=== PATIENT | female | born 1965 | race Caucasian/White ===

== ENCOUNTER 2016-11-22 10:22 | Emergency (ER) | payer MEDICAID ==
[~2016-11-22] VITALS: Ht 157.5 cm; Wt 86.0 kg
[2016-11-22 10:49] VITALS: Ht 157.5 cm; Wt 86.0 kg
[2016-11-22] MEDS ORDERED: ALBUTEROL 0.5% (NEB) 2.5 MG/0.5 ML AMP HHN STA (11:12)
[2016-11-22] MEDS ORDERED: DEXAMETHASONE 10 MG/ML 1 ML INJ IM ONE (11:30)
[2016-11-22] MEDS ORDERED: IPRATROPIUM (NEB) 0.5 MG/2.5 ML AMP HHN ONE (11:30)
--- NOTE | 2016-11-22 11:52 | RADRPT ---
PROCEDURE: XR Chest. CLINICAL INDICATION: Cough, chest pain. TECHNIQUE: AP view of the chest was obtained. COMPARISON: None available FINDINGS: The cardiomediastinal silhouette is within normal limits. The lungs are clear. No signs of pleural f luid or pneumothorax are seen. The osseous structures and soft tissues are unremarkable. IMPRESSION: 1. No evidence for active cardiopulmonary disease. RPTAT: DD .Jaylon Stone MD, MD Date Time Electronically viewed and signed by .Jaylon Stone MD, MD on 11/22/2016 11:51 .S/
[2016-11-22] MEDS ORDERED: MED4DP PO (12:40)
[2016-11-22 13:27] VITALS: BP 152/71; PULSE 97; RESP 18; TEMP 98
--- NOTE | 2016-11-22 17:18 | ERD ---
ER Documentation Chief Complaint Date/Time DATE: 11/22/16 TIME: 17:15 Chief Complaint COUGH , CHEST CONGESTION , BACK PAIN H/O ASTHMA HPI This is a 51-year-old female presents to the ER with a cough, chest congestion, wheezing for the last week. Patient also complained of a sore throat. Patient has a past medical history of asthma and uses albuterol inhaler. Patient states that she has been feeling short of breath secondary to wheezing. She denies any chest pain. She does admit to upper back pain, is worse with coughing. ROS 12 point review of systems was done, all negative except per HPI. Medications Home Meds Active Scripts Methylprednisolone* (Medrol* DOSE PACK) 4 Mg/Dose-Pack Tab.ds.pk, 4 MG PO . DIRECTED for 6 Days, PACKET Prov:BRIAN NÚÑEZ 11/22/16 PMhx/Soc Medical and Surgical Hx: pt denies Surgical Hx Hx Respiratory Disorders: Yes (asthma) Hx Psychiatric Problems: No Hx Miscellaneous Medical Probl: No Hx Alcohol Use: No Hx Substance Use: No Hx Tobacco Use: No Smoking Status: Never smoker Physical Exam Vitals Vital Signs Date Time Temp Pulse Resp B/P Pulse Ox O2 Delivery O2 Flow Rate FiO2 11/22/16 13:27 98.0 97 18 152/71 97 Room Air 11/22/16 11:34 77 18 96 21 11/22/16 10:49 99.2 83 18 139/72 96 Physical Exam GENERAL: The patient is well-developed, well-nourished, in no acute distress. NECK: Cervical spine is non tender with no step off. Supple, no nuchal rigidity HEENT: Atraumatic. Pupils equal, round and reactive to light. Extraocular muscles are grossly intact. Conjunctivae pink, no discharge. Bilateral tympanic membranes are clear with no evidence of erythema, effusion or dulling of the light reflex. Tonsilar erythema with no exudates or uvular deviation. Clear rhinorrhea. RESPIRATORY: Clear to auscultation bilaterally. There are no rales, wheezes or rhonchi. HEART: Regular rate and rhythm. No murmurs, clicks, rubs or gallops. EXTREMITIES: No clubbing or cyanosis. Full range of motion. Grossly neurovascularly intact. NEUROLOGIC: Alert and oriented. SKIN: There is no rash. The skin is warm and dry. Results 24 hrs Current Medications Medications (Trade) Dose Ordered Sig/Anish Route PRN Reason Start Time Stop Time Status Last Admin Dose Admin Albuterol (Proventil 0.5% (Neb)) 10 mg ONCE STAT HHN 11/22/16 11:12 11/22/16 11:16 DC 11/22/16 11:31 Ipratropium [place] (Atrovent 0.02% (Neb)) 0.5 mg ONCE ONCE HHN 11/22/16 11:30 11/22/16 11:31 DC 11/22/16 11:31 Dexamethasone (Decadron) 10 mg ONCE ONCE IM 11/22/16 11:30 11/22/16 11:31 DC 11/22/16 11:24 Procedures/MDM EKG 75bpm no ST elevation no t wave inversion. signed by Dr. Haji Differential diagnosis includes but is not limited to; Viral URI, allergic rhinitis, bronchitis, pertussis,pneumonia. This is likely bronchitis. Clinical suspicion for pneumonia is low as patient appears well, is not hypoxic or in any respiratory distress. Additionally, patients physical examination is benign. Plan was discussed with patient they understand and agree. Patient needs to follow up with PCP in 1-2 days or return to ER sooner if symptoms worsen. Departure Diagnosis: Primary Impression: Bronchitis Condition: Stable Patient Instructions: Bronchitis With Wheezing (Adult) Additional Instructions: Llame al doctor WENDY y tomás lenka MELANIE PARA DENTRO DE 1-2 REA.Dgale a la secretaria que nosotros le instruimos hacer esta melanie.Avise o llame si june condicin se empeora antes de la melanie. Regresa aqui si peor o no mejor. BRIAN NÚÑEZ Nov 22, 2016 17:18
== END 2016-11-22 13:31 | disposition home or self-care (01) ==
LOC: FTE 10:22 → MERGE 10:22 → FTE 13:31
DX: J40 Bronchitis, not specified as acute or chronic (principal); R07.9 Chest pain, unspecified
CPT/HCPCS: 71010; 93005; 94664; 96372; J1100; Z7502; Z7610

== ENCOUNTER 2018-04-19 20:55 | Emergency (ER) | END 2018-04-20 02:37 | disposition home or self-care (01) ==

== ENCOUNTER 2018-09-19 19:02 | Emergency (ER) | END 2018-09-19 21:41 | disposition home or self-care (01) ==

== ENCOUNTER 2018-12-29 19:38 | Emergency (ER) | payer MEDICAID ==
[~2018-12-29] VITALS: Ht 154.9 cm; Wt 84.9 kg
[~2018-12-29 19:38] MED LIST: ALBU8.5H8 INH; ATRO INH; CETI10CA PO; CYCL10TA7 PO; MED4DP PO; NAPR-985 PO
[2018-12-29 19:45] VITALS: Ht 154.9 cm; Wt 84.9 kg
[2018-12-29] MEDS ORDERED: ACETAMINOPHEN 500 MG TAB PO STA (20:12)
[2018-12-29] MEDS ORDERED: KETOROLAC 30 MG INJ IV STA (23:56)
--- NOTE | 2018-12-30 00:55 | ERD ---
ER Documentation Chief Complaint Chief Complaint NECK PAIN 3 DAYS HPI This is a 53-year-old female comes in with points of neck pain for the past 3 days. She also complains of some body aches and fevers. Denies any photophobia. Denies any nausea vomiting. Denies any other current complaints. Pain is mild to moderate in intensity. Seems to be on the right side of her neck and worse when she moves her head to the right. No trauma to the area. No other current issues ROS All systems reviewed and are negative except as per history of present illness. Medications Home Meds Active Scripts Cyclobenzaprine Hcl* (Cyclobenzaprine Hcl*) 10 Mg Tablet, 10 MG PO TID, #15 TAB Prov:DREW LAWRENCE PA-C 09/19/18 Naproxen* (Naprosyn*) 500 Mg Tablet, 500 MG PO BID PRN for PAIN AND/OR INFLAMMATION, #30 TAB Prov:DREW LAWRENCE PA-C 09/19/18 Ipratropium [place]* (Atrovent HFA*) 12.9 Gm Aer.w.adap, 2 PUFF INH Q6 PRN for SHORTNESS OF BREATH, #1 EA Prov:RODRIGUEZ FRANCIS PA-C 04/20/18 Albuterol Sulfate* (Proair HFA*) 8.5 Gm Hfa.aer.ad, 2 PUFF INH Q4H PRN for WHEEZING AND SOB, #1 INHALER Prov:RODRIGUEZ FRANCIS PA-C 04/20/18 Cetirizine Hcl* (Zyrtec*) 10 Mg Capsule, 10 MG PO DAILY, #30 TAB.CHEW Prov:RODRIGUEZ FRANCIS PA-C 04/20/18 Methylprednisolone* (Medrol* DOSE PACK) 4 Mg/Dose-Pack Tab.ds.pk, 4 MG PO . DIRECTED for 6 Days, PACKET Prov:BRIAN NÚÑEZ 11/22/16 Allergies Allergies: Coded Allergies: amoxicillin (Verified Allergy, Intermediate, rash, 04/20/18) ampicillin (Verified Allergy, Unknown, RASH, 12/29/18) tetracycline (Verified Allergy, Unknown, RASH, 12/29/18) PMhx/Soc Medical and Surgical Hx: pt denies Surgical Hx Hx Respiratory Disorders: Yes (asthma) Hx Psychiatric Problems: No Hx Miscellaneous Medical Probl: No Hx Alcohol Use: No Hx Substance Use: No Hx Tobacco Use: No Smoking Status: Never smoker Physical Exam Vitals Vital Signs Date Temp Pulse Resp B/P (MAP) Pulse Ox O2 O2 Flow FiO2 Time Delivery Rate 12/29/18 100.6 107 18 185/95 96 19:45 (125) Physical Exam Const: No acute distress Head: Atraumatic Eyes: Normal Conjunctiva ENT: Normal External Ears, Nose and Mouth. Neck: Full range of motion. No meningismus. Resp: Clear to auscultation bilaterally Cardio: Regular rate and rhythm, no murmurs Abd: Soft, non tender, non distended. Normal bowel sounds Skin: No petechiae or rashes Back: No midline or flank tenderness Ext: No cyanosis, or edema Neur: Awake and alert Psych: Normal Mood and Affect Result Diagram: 12/29/18202412/29/182024 Results 24 hrs Laboratory Tests Test 12/29/18 20:20 12/29/18 20:23 12/29/18 20:25 12/29/18 20:26 Urine Color COLORLESS Urine Clarity CLEAR Urine pH 6.0 Urine Specific 1.004 [place] Urine Ketones NEGATIVE mg/dL Urine Nitrite NEGATIVE mg/dL Urine Bilirubin NEGATIVE mg/dL Urine NEGATIVE mg/dL Urobilinogen Urine Leukocyte NEGATIVE Rosa Maria/ul Esterase Urine Microscopic 1 /HPF RBC Urine Microscopic 1 /HPF WBC Urine Bacteria FEW /HPF Urine Hemoglobin 2+ mg/dL Urine Glucose NEGATIVE mg/dL Urine Total NEGATIVE mg/dl Protein POC Venous 1.3 mmol/L Lactate White Blood Count 13.3 10^3/ul Red Blood Count 5.46 10^6/ul Hemoglobin 13.5 g/dl Hematocrit 43.7 % Mean Corpuscular 80.0 fl Volume Mean Corpuscular 24.7 pg Hemoglobin Mean Corpuscular 30.9 g/dl Hemoglobin Concen t Red Cell 13.2 % Distribution Width Platelet Count 265 10^3/UL Mean Platelet 9.8 fl Volume Immature 0.500 % Granulocytes % Neutrophils % 56.5 % Lymphocytes % 24.6 % Monocytes % 8.5 % Eosinophils % 9.3 % Basophils % 0.6 % Nucleated Red 0.0 /100WBC Blood Cells % Immature 0.060 10^3/ul Granulocytes # Neutrophils # 7.5 10^3/ul Lymphocytes # 3.3 10^3/ul Monocytes # 1.1 10^3/ul Eosinophils # 1.2 10^3/ul Basophils # 0.1 10^3/ul Nucleated Red 0.0 10^3/ul Blood Cells # Prothrombin Time 12.2 Sec Prothrombin Time 1.0 Ratio INR International 0.89 Normalized Ratio Activated 26.4 Sec Partial Thrombopl ast Time Sodium Level 141 mmol/L Potassium Level 3.6 mmol/L Chloride Level 103 mmol/L Carbon Dioxide 30 mmol/L Level Anion Gap 8 Blood Urea 12 mg/dl Nitrogen Creatinine 0.61 mg/dl Est Glomerular > 60 mL/min Filtrat Rate mL/min Glucose Level 120 mg/dl Calcium Level 9.4 mg/dl Total Bilirubin 0.0 mg/dl Direct Bilirubin 0.00 mg/dl Indirect 0.0 mg/dl Bilirubin Aspartate Amino 46 IU/L Transf (AST/SGOT) Alanine 52 IU/L Aminotransferase (ALT/SGPT) Alkaline 105 IU/L Phosphatase Troponin I < 0.012 ng/ml Total Protein 8.1 g/dl Albumin 4.4 g/dl Globulin 3.70 g/dl Albumin/Globulin 1.18 Ratio Bedside Urine pH 6.5 (LAB) Bedside Urine Negative Protein (LAB) Bedside Urine Negative Glucose (UA) Bedside Urine Negative Ketones (LAB) Bedside Urine 2+ Blood Bedside Urine Negative Nitrite (LAB) Bedside Urine Negative Leukocyte Esteras e (L Current Medications Medications Dose Sig/Anish Start Time Status Last (Trade) Ordered Route PRN Stop Time Admin Dose Reason Admin 1,000 mg ONCE STAT 12/29/18 DC 12/29/18 Acetaminophen PO 20:12 20:33 (Tylenol 12/29/18 20:14 Tab) Ketorolac 30 mg ONCE STAT 12/29/18 DC 12/30/18 Tromethamine IV 23:56 00:03 (Toradol) 12/29/18 23:57 Procedures/MDM Chest X-ray 1V Interpreted by me: Soft Tissue: No acute abnormalities Bones: No acute abnormalities Mediastinum/Cardiac Silhouette/Lungs: [No acute abnormalities] Medical decision makin-year female who looks to be a viral syndrome with likely cervical spasm. At this point she is clinically stable. No signs of meningismus. Well-appearing. Pain is resolved with Toradol. Will be discharged home. Follow-up with PMD. Return for worsening symptoms. Departure Diagnosis: Primary Impression: Neck pain Additional Impression: Viral syndrome Condition: Stable DREW CHARLES Dec 30, 2018 00:55
[2018-12-30] MEDS ORDERED: MED4DP PO (01:03)
[2018-12-30] MEDS ORDERED: NAPR-985 PO (01:03)
[2018-12-30 01:31] VITALS: BP 147/81; PULSE 94; RESP 16
== END 2018-12-30 01:34 | disposition home or self-care (01) ==
LOC: E/R 19:38
DX: M54.2 Cervicalgia (principal); R40.2142 Coma scale, eyes open, spontaneous, at arrival to emergency department; R40.2362 Coma scale, best motor response, obeys commands, at arrival to emergency department; R40.2252 Coma scale, best verbal response, oriented, at arrival to emergency department; B34.9 Viral infection, unspecified; J45.909 Unspecified asthma, uncomplicated; R50.9 Fever, unspecified
CPT/HCPCS: 71045; 80053; 81001; 83605; 84484; 85025; 85610; 85730; 87086; 87400; 93005; 96374; J1885; Z7502; Z7610; 81003